=== PATIENT | male | born 1975 | race Hispanic/Latino ===

== ENCOUNTER 2025-03-04 15:24 | Emergency (ER) | payer SELFPAY ==
[2025-03-04 15:29] VITALS: BP 135/87
[2025-03-04 15:57] LABS: Hematocrit 39.1 % (39.0-52.0); Hemoglobin 13.4 g/dL (13.0-18.0); Mean Corp Hgb Conc. 34.3 g/dL (33.0-37.0); Mean Corpuscular Volume 81.6 fL (80.0-94.0); Nucleated Red Blood Cells % 0 % (-); Platelet Count 291 10^3/uL (130-400); Red Cell Dist. Width 13.2 % (11.5-14.5)
[2025-03-04 16:06] LABS: Urine Character Clear (Clear)
[2025-03-04 16:19] LABS: ALT (SGPT) 31 U/L (0-50); AST (SGOT) 32 U/L (17-59); Albumin 4.5 g/dl (3.5-5.0); Alkaline Phosphatase 71 U/L (38-126); Blood Urea Nitrogen 17 mg/dl (9-20); Calcium 9.4 mg/dl (8.4-10.2); Carbon Dioxide 21 mmol/L (22-30); Chloride 110 mmol/L (98-107); Glucose 110 mg/dl (70-99); Lipase 96 U/L (23-300); Potassium 4.0 mmol/L (3.5-5.1); Sodium 139 mmol/L (135-145); Total Protein 7.0 g/dl (6.3-8.2); eGFR > 60.00
[2025-03-04 16:42] LABS: Urine Red Blood Cell 0-2 /HPF (0-2); Urine Squamous Cell 0-2 /LPF (Few); Urine White Cell 0-2 /HPF (0-5)
[2025-03-04 17:09] VITALS: BMI 23.3
[2025-03-04 17:16] VITALS: BP 118/76
--- NOTE | 2025-03-04 18:24 | ED.GENMED ---
History of Present Illness
General
Chief Complaint: Flank Pain
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
Exam Limitations: none
Time Seen by Provider: 03/04/25 17:55
Nursing documentation reviewed up to this point in time: agreed with
History of Present Illness
History of Present Illness:
49-year-old male with no past medical history presents with right flank pain. He states that started 3 weeks ago and is worse with certain movements. He has taken Tylenol with some relief short-term. He has felt nauseous at times but has not
vomited. He states he felt feverish but has not taken his temperature. He denies chills. He had 1 episode of diarrhea today.
No recollection of overuse or injury. 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 He denies UTI symptoms. Denies chest pain, SOB, abdominal pain.
He said he saw doctor in [facility] on 02/25 for the flank pain who gave him some medication, # 10 tablets of most of them they are all in Polish and I do not know what any of them are except 1 that is spelled like Flomax. Pt states he thinks the
medications are 'for my kidneys.'
Past History
Past History
ED Past Medical History: None
ED Past Surgical History: None
Social History
Tobacco: Non-smoker
Personal: Single
Living: with roommate
Review of Systems
Review of Systems
Allergies reviewed?: Yes
All Other Systems: ROS reviewed and negative except as documented in HPI and ROS
Phy Exam
Physical Exam
Physical Exam:
GENERAL: No acute distress. A&Ox3.
CONSTITUTIONAL: Afebrile.
EYES: clear, conjunctivae normal
ENMT: moist mucus membranes, Pharynx nl
RESPIRATORY: Regular respirations, nonlabored, lungs clear.
CARDIOVASCULAR: Regular rate and rhythm, no murmurs, no rubs.
GI: Soft, nontender, normal BS
MUSCULOSKELETAL: Palpation over right lateral flank and lower rib area immediately reproduces significant pain. Pain is worse with rotation and bending to touch toes and pt winces with these movements. Otherwise, he does move with ease. Well
perfused.
SKIN: Warm, dry, normal
PSYCH: Normal mood and affect. Well kept, interactive and appropriate
NEUROLOGIC: Awake, alert and oriented. No focal neurological deficits
Course
Orders/Labs/Results
Orders:
Orders
03/04/25 15:41
Complete Blood Count/With Diff Urgent
Comprehensive Metabolic Panel Urgent
Lipase Urgent
Urinalysis Reflex To Culture Urgent
Date Specimen was Collected: 03/04/25
Time Specimen was Collected: 15:34
Urine Microscopic Reflex Cult Urgent
03/04/25 18:22
Dexamethasone [Decadron] 10 mg PO NOW STA
03/04/25 18:23
Cyclobenzaprine HCl [Flexeril] 10 mg PO NOW STA
Ketorolac [Toradol] 30 mg IM NOW STA
Abnormal Lab Results
03/04/25
15:41
Chloride 110 H mmol/L
(98-107)
Carbon Dioxide 21 L mmol/L
(22-30)
Glucose 110 H mg/dl
(70-99)
Ur Occult Blood Reflex 1+ A
(Negative)
03/04/25 15:41
03/04/25 15:41
Vital Signs
Initial and Last Documented VS:
Initial Vital Signs
Temp Pulse Resp BP Pulse Ox
98.5 F 104 16 135/87 98
03/04/25 15:29 03/04/25 15:29 03/04/25 15:29 03/04/25 15:29 03/04/25 15:29
Last Documented Vital Signs
Temp Pulse Resp BP Pulse Ox
98.5 F 68 18 118/76 98
03/04/25 15:29 03/04/25 17:16 03/04/25 17:16 03/04/25 17:16 03/04/25 18:27
MDM/Problems Addressed
Differential Diagnosis Includes:
back muscle strain, kidney stone, UTI
MDM/Problems Addressed:
49-year-old male with no past medical history presents with right flank pain. He states that started 3 weeks ago and is worse with certain movements. He has taken Tylenol with some relief short-term. He has felt nauseous at times but has not
vomited. He states he felt feverish but has not taken his temperature. He denies chills. He had 1 episode of diarrhea today.
No recollection of overuse or injury. 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 He denies UTI symptoms. Denies chest pain, SOB, abdominal pain.
Afebrile, NAD
CBC, CMP normal
UA normal
Pain is immediately reproducible with palpation over the left lateral flank area/lower rib cage. Pain is worse with rotating the torso to his right and much worse when he flexes forward to touch his toes.
Exam is most consistent with musculoskeletal pain.
Plan: 1 dose Toradol, Decadron, Flexeril here and prescription for Flexeril sent to his pharmacy, continue ibuprofen
He belongs to the [facility] from in clinic and will follow-up there as needed.
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
*Pulse Oximetry
SaO2: 98
Oxygen Mode of Delivery: Room air
Patient hypoxic: not evaluated
*Critical Care Note
Total Time (30-74mins, 75-104mins- exclusive of procedures): Not Applicable
ED Attending Note
-
Portions of this chart may have been created with voice recognition software.� Occasional wrong word or��sound alike� substitutions may have occurred due to the inherent limitations of voice recognition software.
Discharge Plan
Departure
Patient Disposition: Home (Routine Discharge)
Date of Disposition: 03/04/25
Time of Disposition: 18:34
Patient with high blood pressure during this ER visit?: No
Condition: Good
Discharge Problem:
Back strain
Instructions: Muscle strain, Back Pain
Prescriptions:
New
cyclobenzaprine 10 mg tablet
10 mg PO TID PRN (Reason: muscle spasm/back pain) Qty: 15 0RF
Referrals:
[facility] [Outside] - Call in 1-3 days for appt
UNKNOWN - PT DOES,NOT KNOW [Family Provider]
Activity Restrictions/Additional Instructions:
As we discussed, it appears as if you have a back muscle strain/sprain
Heating pad for 20 minutes off-and-on may help.
Ibuprofen 600 mg, with food, every 6 hours as needed for pain
You were given a steroid, Decadron here today, this should help with the inflammation and should last for about 3 days
I sent a prescription to your pharmacy for Flexeril (cyclobenzaprine) to use as needed for back muscle spasm or back pain, it can make you sleepy and slow the reflexes so do not drive or operate any machinery within 8 hours of taking it.
Call the [facility] tomorrow and make an appointment for next week for follow-up in case you are not getting better.
Interventions
Interventions:
*Risk Screen - Suicide Last Done: 03/04/25 15:29
*General Assessment Last Done: 03/04/25 17:15
*Neglect/Abuse Screening Last Done: 03/04/25 15:29
*ED- Fall Risk Assessment Last Done: 03/04/25 17:15
*ED COVID-19 Vaccine History Last Done: 03/04/25 17:15
*Nursing Disposition Last Done: 03/04/25 19:02
YY-Kobidm-Cufimchfub Assessment Last Done: 03/04/25 17:17
ED-Male Genitourinary Assessment Last Done: 03/04/25 17:17
Discharge Date and Time
Discharge Date/Time: 03/04/25 19:07
Print Language: BULGARIAN
[2025-03-04] MEDS: DECADRON 10 MG PO (18:39)
[2025-03-04] MEDS: TORADOL 30 MG IM (18:40)
[2025-03-04] MEDS: FLEXERIL 10 MG PO (18:45)
== END 2025-03-04 19:07 | disposition home or self-care (01) ==
LOC: EMR 15:24
PROVIDERS: EMERGENCY PHYSICIAN Student in an Organized Health Care Education/Training Program
DX: S39.012A Strain of muscle, fascia and tendon of lower back, initial encounter (principal); X58.XXXA Exposure to other specified factors, initial encounter
CPT/HCPCS: 99284; 96372; 80053; 81003; 81015; 83690; 85025

== ENCOUNTER → 2025-03-11 16:22 | Outpatient (REF) | payer OTHER, SELFPAY ==
[2025-03-11 18:06] LABS: Uric Acid 5.6 mg/dl (3.5-8.5)
[2025-03-11 18:10] LABS: C-Reactive Protein < 5.00 mg/L (0.0-10.00)
== END ==
LOC: CLINIC 16:22
PROVIDERS: ATTENDING PHYSICIAN Internal Medicine
DX: M19.90 Unspecified osteoarthritis, unspecified site (principal)
CPT/HCPCS: 36415; 73100; 73564; 84550; 85652; 86140; 86200; 86430

== ENCOUNTER → 2025-04-01 15:10 | Outpatient (REF) | payer OTHER, SELFPAY ==
[2025-04-01 15:56] LABS: Hematocrit 41.6 % (39.0-52.0); Hemoglobin 14.0 g/dL (13.0-18.0); Mean Corp Hgb Conc. 33.7 g/dL (33.0-37.0); Mean Corpuscular Volume 84.4 fL (80.0-94.0); Nucleated Red Blood Cells % 0 % (-); Platelet Count 296 10^3/uL (130-400); Red Cell Dist. Width 13.0 % (11.5-14.5)
[2025-04-01 16:14] LABS: ALT (SGPT) 32 U/L (0-50); AST (SGOT) 28 U/L (17-59); Albumin 4.4 g/dl (3.5-5.0); Alkaline Phosphatase 78 U/L (38-126); Blood Urea Nitrogen 19 mg/dl (9-20); Calcium 9.2 mg/dl (8.4-10.2); Carbon Dioxide 26 mmol/L (22-30); Chloride 107 mmol/L (98-107); Glucose 89 mg/dl (70-99); Potassium 4.1 mmol/L (3.5-5.1); Sodium 138 mmol/L (135-145); Total Protein 7.2 g/dl (6.3-8.2); eGFR > 60.00
[2025-04-01 16:21] LABS: Urine Character Clear (Clear)
[2025-04-01 16:46] LABS: PSA, Total - Screen 0.58 ng/ml (0.0-4.0)
[2025-04-01 17:08] LABS: Urine Red Blood Cell 0-2 /HPF (0-2); Urine Squamous Cell 0-2 /LPF (Few); Urine White Cell 0-2 /HPF (0-5)
[2025-04-02 09:09] LABS: Glycohemoglobin (HgbA1c) 5.4 % (4.0-5.6)
[2025-04-03 16:21] LABS: FIT-Fecal Occult Blood Interp Negative
== END ==
LOC: REG 15:10
PROVIDERS: ATTENDING PHYSICIAN Internal Medicine
DX: Z00.00 Encounter for general adult medical examination without abnormal findings (principal)
CPT/HCPCS: 36415; 80053; 81003; 81015; 83036; 83520; 85025; 85652; G0103